=== PATIENT | male | born 1980 | race Hispanic/Latino ===

== ENCOUNTER 2023-12-27 19:22 | Emergency (ER) | payer SELFPAY ==
[~2023-12-27] VITALS: Ht 165.1 cm; Wt 120.2 kg
[2023-12-27 19:37] VITALS: TEMP 97.9
[2023-12-27 20:23] LABS: BASOPHILS # (AUTO) 0.1 (0.0-0.1); BASOPHILS % 0.7 % (0.0-1.0); EOSINOPHILS # (AUTO) 0.2 (0.0-0.4); EOSINOPHILS % 2.1 % (0.0-6.0); HEMATOCRIT 41.2 % (38.2-49.6); HEMOGLOBIN 13.7 g/dL (14.0-18.0); LYMPHOCYTES # (AUTO) 2.4 (1.0-3.2); LYMPHOCYTES % 22.7 % (18.0-39.1); MEAN CORPUSCULAR HEMOGLOBIN 28.5 pg (28-32); MEAN CORPUSCULAR HGB CONC 33.3 g/dL (31-35); MEAN CORPUSCULAR VOLUME 85.8 fL (81-99); MONOCYTES # (AUTO) 0.8 (0.2-0.8); MONOCYTES % 7.8 % (4.4-11.3); NEUTROPHILS % 66.3 % (38.7-80.0); PLATELET COUNT 326 x10e3/uL (140-360); RED CELL DISTRIBUTION WIDTH 11.9 % (11.7-14.4); WHITE BLOOD COUNT 10.51 x10e3/uL (4.8-10.8)
[2023-12-27 20:42] LABS: ANION GAP 13.5 mmol/L (8-16); CALCIUM 8.7 mg/dL (8.4-10.2); CREATININE, SERUM 1.15 mg/dL (0.72-1.25); POTASSIUM 3.5 mmol/L (3.5-5.1)
[2023-12-27] MEDS ORDERED: METFORMIN HCL1000 MG PO (21:43)
[2023-12-27] MEDS ORDERED: LISINOPRIL-HCT1 EACH PO (21:43)
[2023-12-27 21:45] VITALS: PULSE 96; RESP 18; O2SAT 98
[2023-12-27 21:50] VITALS: BP 211/123
[2023-12-27] MEDS: HYDRALAZINE HCL 20 MG/ML VIAL IV STA (21:50)
== END 2023-12-27 21:56 | disposition home or self-care (01) ==
LOC: ER 19:28
DX: S81.852A Open bite, left lower leg, initial encounter (principal); T63.421A Toxic effect of venom of ants, accidental (unintentional), initial encounter; I10 Essential (primary) hypertension; E11.65 Type 2 diabetes mellitus with hyperglycemia
CPT/HCPCS: 36415; 80048; 85025; 99283; J0360